=== PATIENT | female | born 1990 | race Caucasian/White ===

== ENCOUNTER → 2024-04-24 14:35 | Outpatient (BNVA) | payer MEDICARE, MEDICAID, SELFPAY | PROVIDERS: Visit Provider Physical Therapy Assistant ==

== ENCOUNTER → 2024-05-07 09:30 | Outpatient (BNVA) | payer OTHER, MEDICAID, SELFPAY | PROVIDERS: PCP Physician Assistant; Referring Provider Physician Assistant; Visit Provider Student in an Organized Health Care Education/Training Program | DX: K44.9 Diaphragmatic hernia without obstruction or gangrene (principal); E66.01 Morbid (severe) obesity due to excess calories; Z68.42 Body mass index [BMI] 45.0-49.9, adult | CPT/HCPCS: 99205 ==

== ENCOUNTER 2024-06-25 09:45 | Emergency (ER) | payer MEDICARE, MEDICAID, SELFPAY ==
[2024-06-25] VITALS (13 sets, daily range): BP systolic 118–158; BP diastolic 71–100; PULSE 100–119; RESP 11–23; TEMP 36.4; O2SAT 88–95
--- NOTE | 2024-06-25 10:13 | W.ED.GENAD ---
Discharge Plan Disposition Patient Disposition: Home Condition: Stable Discharge Details Clinical Impression: Vomiting, Abdominal pain, Electrolyte disturbance Primary Care Provider: Venessa Allen ED Provider: Faby Leavitt Home Meds and New Rx's Prescriptions: Continued Mirena 21 mcg/24hr (up to 8 yrs) 52 mg intrauterine device 1 device intrauterine ONCE Rx Instructions: as a single dose gabapentin 300 mg capsule 300 mg PO BID Advil PM 200-38 mg tablet 2 cap PO QHS gabapentin 600 mg tablet 600 mg PO DAILY ondansetron 4 mg tablet,disintegrating 4 mg PO Q12H PRN Nucynta 100 mg tablet 100 mg PO QID PRN Nucynta ER 50 mg tablet extended release 12 hr 50 mg PO Q12H topiramate [Topamax] 50 mg tablet 50 mg PO TID prochlorperazine maleate [Compazine] 10 mg tablet 10 mg PO Q6H PRN spironolactone 50 mg tablet 50 mg PO QHS albuterol 90 mcg/actuation aerosol 90 mcg inhalation Q4H PRN omeprazole 20 mg tablet,delayed release (DR/EC) 20 mg PO DAILY Cosentyx UnoReady Pen 300 mg/2 mL (150 mg/mL) pen injector 300 mg subcut Q2W Discharge Instructions Instructions: Hypokalemia, High Potassium Diet, Abdominal Pain, Adult ED, Nausea and Vomiting, Adult ED, Hypomagnesemia Additional Instructions: At this time CT abdomen chest pelvis is within normal limits. No evidence of blood clot in your lung. Your magnesium and potassium are slightly low. Please follow a high potassium diet. Follow up with primary care provider in 3-5 days. Return to ED sooner if any worsening or concerns. Please take the oral dissolvable tablets of Zofran as previously prescribed for any additional nausea vomiting. Please take Tylenol or Ibuprofen with food every 4-6 hours as needed for pain and swelling. Referrals: Venessa Allen [Primary Care Provider] - 3 days HPI General Mode of arrival: EMS. Date/Time Provider Initiated Documentation: 06/25/24 09:51. Limitations to Documentation: no limitations. Information obtained by: patient, EMS and RN notes reviewed. HPI Narrative: 33-year-old female presents to the ER via EMS with a chief complaint of vomiting, abdominal cramping for the last 24 hours. Patient reports that she was recently diagnosed and discharged from [facility] approximately 5 days ago for acute kidney injury and cyclical vomiting syndrome. She is complaining of some right upper quadrant abdominal pain. She reports she has been unable to hold down her nausea medications which include Zofran and Compazine at home. She does have a history of hidradenitis suppurativa which she reports that she was on chemotherapy for, she does have a surgical history of panniculectomy, cholecystectomy and appendectomy. She does have a history of cyclical vomiting syndrome PTSD and adjustment disorder. She does get the majority of her care at [facility]. Related Data Home Medications ?Medication ?Instructions ?Recorded ?Confirmed albuterol 90 mcg/actuation aerosol 90 mcg inhalation Q4H PRN 04/23/24 06/25/24 inhaler gabapentin 300 mg capsule 300 mg PO BID 04/23/24 06/25/24 gabapentin 600 mg tablet 600 mg PO DAILY 04/23/24 06/25/24 ibuprofen-diphenhydramine citrate 2 cap PO QHS 04/23/24 06/25/24 200 mg-38 mg tablet (Advil PM) levonorgestrel 21 mcg/24 hr (up to 1 device intrauterine ONCE 04/23/24 06/25/24 8 years) 52 mg intrauterine device (Mirena) omeprazole 20 mg tablet,delayed 20 mg PO DAILY 04/23/24 06/25/24 release ondansetron 4 mg disintegrating 4 mg PO Q12H PRN 04/23/24 06/25/24 tablet prochlorperazine maleate 10 mg 10 mg PO Q6H PRN 04/23/24 06/25/24 tablet (Compazine) spironolactone 50 mg tablet 50 mg PO QHS 04/23/24 06/25/24 tapentadol 100 mg tablet (Nucynta) 100 mg PO QID PRN 04/23/24 06/25/24 tapentadol 50 mg tablet,extended 50 mg PO Q12H 04/23/24 06/25/24 release,12 hr (Nucynta ER) topiramate 50 mg tablet (Topamax) 50 mg PO TID 04/23/24 06/25/24 secukinumab 300 mg/2 mL (150 300 mg subcut Q2W 04/24/24 06/25/24 mg/mL) subcutaneous pen injector (Cosentyx UnoReady Pen) Allergies Allergy/AdvReac Type Severity Reaction Status Date / Time acetaminophen AdvReac Intermediate Nausea Unverified 06/25/24 09:50 adhesive tape AdvReac Intermediate Skin Rash Unverified 06/25/24 09:50 amitriptyline AdvReac Intermediate Other (See Unverified 06/25/24 09:50 Comment) cigarette smoke AdvReac Other (See Unverified 06/25/24 09:50 Comment) General Stated Complaint: Nausea/Vomit/Diar JASON: 3 Review of Systems All systems reviewed & are unremarkable except as noted in HPI and below Gastrointestinal Gastrointestinal: Reports abdominal pain, Reports diarrhea, Reports nausea and Reports vomiting Exam Narrative Exam Narrative: Constitutional: Alert and oriented x3. Appears stated age. Overweight body habitus. Head: Normocephalic, no trauma. Eyes: Pupils PERRL, Red reflex noted, EOM's intact. Eyelids symmetrical without lesions, discharge, or swelling. ENT: Bilateral TM's WNL, External ear normal to inspection, no mastoid TTP, swelling, or erythema, Nasal turbinates WNL, no nasal discharge. Normal dentition, Posterior pharynx WNL, no exudate. Chest: RRR, Normal S1, S2, distal pulses intact. Resp: Lungs clear to auscultation bilaterally, no wheezes, rales, or rhonchi. Abdomen: Guarded, right upper quadrant pain with palpation no masses palpated, hypoactive bowel sounds all 4 quads. Musculoskeletal: Normal gait, Moves all 4 extremities without difficulty. Skin: No suspicious rashes or lesions. Capillary refill less than 2 sec. Neurologic: Cranial nerves II-XII intact. Alert and oriented x 3. Motor: No deficits noted. Sensory: Intact bilaterally all 4 extremities. Hematologic/Lymphatic: No ecchymosis, no lymphadenopathy. Course Vital Signs Vital signs: Vital Signs Temperature 36.4 C L 06/25/24 09:45 Pulse 116 H 06/25/24 09:45 Respiratory Rate 18 06/25/24 09:45 Blood Pressure 142/82 H 06/25/24 09:45 Pulse Oximetry 95 06/25/24 09:45 Temperature 36.4 C L 06/25/24 09:45 Temperature Source Oral 06/25/24 09:45 Pulse 116 H 06/25/24 09:45 Respiratory Rate 18 06/25/24 09:45 Blood Pressure 142/82 H 06/25/24 09:45 Blood Pressure Position Supine 06/25/24 09:45 Pulse Oximetry 95 06/25/24 09:45 Medical Decision Making 33-year-old female presents to the ER via EMS with a chief complaint of vomiting, abdominal cramping for the last 24 hours. Patient reports that she was recently diagnosed and discharged from [facility] approximately 5 days ago for acute kidney injury and cyclical vomiting syndrome. She is complaining of some right upper quadrant abdominal pain. She reports she has been unable to hold down her nausea medications which include Zofran and Compazine at home. She does have a history of hidradenitis suppurativa which she reports that she was on chemotherapy for, she does have a surgical history of panniculectomy, cholecystectomy and appendectomy. She does have a history of cyclical vomiting syndrome PTSD and adjustment disorder. She does get the majority of her care at [facility]. Workup ordered including CBC CMP lipase, magnesium, CT abdomen pelvis, 500 cc bolus Compazine and hydromorphone 0.5 mg Differential diagnosis includes not limited to recurrent cyclical vomiting syndrome, bowel obstruction, PE, pneumonia, viral illness, gastroenteritis. CBC shows mild leukocytosis white blood cell count 13.26, platelets 500 neutrophils 8.23 sodium 139 potassium 3.0 BUN 14 creatinine 1.2 GFR 60 magnesium is low at 1.4. Lipase within normal limits. Gram of magnesium IV ordered, 10 mill colons of potassium IV will trial 40 mill equivalents p.o. liquid. Awaiting CT. For my staff midwife/apprenticeship director the patient is still complaining of pain however her O2 sat is 90 to 91% on room air she is still tachycardic at 122, QTc is 489 blood pressure 153/97. Will hold off on medications at this time and instructed staff midwife/apprenticeship director to give the 500 cc bolus and magnesium and potassium. Called to patient's bedside, patient satting 88%, on room air. EKG ordered, portable chest x-ray, CT changed to CT chest PE rule out. Patient placed on nonrebreather at this time she is satting 89% on nonrebreather. She is tachycardic QTc is prolonged at 496. RT called by staff midwife/apprenticeship director, patient is on 1 L at this timeo2 sat improved. Chest x-ray within normal limits no obvious pneumonia pneumothorax or pleural effusion. Spoke with radiologist regarding CT no PE, nothing acute at this time. Discussed CT results and lab results with patient she appears much more comfortable upon reevaluation. She has no more complaints of shortness of breath her pain is under control at this time. I did discuss her potassium and magnesium being low she verbalized understanding. Discussed follow-up care. Discussed tricked return instructions. This text was generated using [employer] dictation system, please disregard any oddities of phrase or misspellings. Patient heart rate has somewhat improved down to 114 which is what she was upon arrival. Lab Data Lab results reviewed: Yes I reviewed the patient's lab results. Labs: Laboratory Tests Range/Units 06/25/24 10:32 WBC (4.4-10.8) 10^3/uL 13.26 H RBC (3.93-5.22) 10^6/uL 5.24 H Hgb (11.2-15.7) g/dL 14.3 Hct (36.0-46.0) % 42.9 MCV (80-95) fL 82 MCH (27.0-33.0) pg 27.3 MCHC (32.0-36.0) % 33.3 RDW (11.7-14.6) % 14.1 Plt Count (130-400) 10^3/uL 500 H MPV (8.0-11.0) fL 9.1 Immature Gran % % 0.5 Neutrophils % % 62.1 Lymphocytes % % 29.9 Monocytes % % 6.8 Eosinophils % % 0.2 Basophils % % 0.5 Nucleated RBC % (0.0-0.3) % 0.0 Absolute Neutrophils (1.2-6.7) 10^3/uL 8.23 H Absolute Lymphocytes (1.2-3.4) 10^3/uL 3.96 H Absolute Monocytes (0.1-0.8) 10^3/uL 0.90 H Absolute Eosinophils (0.0-0.7) 10^3/uL 0.03 Absolute Basophils (0.0-0.2) 10^3/uL 0.07 Sodium (136-145) mmol/L 139 Potassium (3.5-5.1) mmol/L 3.0 L Chloride (98-107) mmol/L 99 Carbon Dioxide (21.0-32.0) mmol/L 21.7 Anion Gap (3-11) mmol/L 18.3 H BUN (7-18) mg/dL 14 Creatinine (0.55-1.02) mg/dL 1.2 H Est GFR (CKD-EPI 2020) (mL/min/1.73m2) 60.54 Glucose (74-106) mg/dL 109 H Calcium (8.5-10.1) mg/dL 10.1 Magnesium (1.8-2.4) mg/dL 1.4 L Total Bilirubin (0.2-1.0) mg/dL 0.47 AST (15-37) U/L 24 ALT (14-59) U/L 51 Alkaline Phosphatase (46-116) U/L 131 H Total Protein (6.4-8.2) g/dL 8.5 H Albumin (3.4-5.0) g/dL 4.6 Lipase (<78) U/L 42 Serum HCG, Qual Negative Quality:SDOH Health Related Social Needs: No Data to Display PFSH All Active Problems (Updated 06/25/24 @ 13:38 by Faby Leavitt NP) Electrolyte disturbance (Acute) Abdominal pain (Acute) Vomiting (Acute) Hiatal hernia (Chronic) Medical History Morbid obesity with BMI of 50.0-59.9, adult Acchlmi-fm-yth Adjustment disorder with depressed mood Chronic, continuous use of opioids Abdominal pannus Irritant contact dermatitis Chronic post-traumatic stress disorder Skin ulcer of left thigh Dyspnea Candidiasis Intractable nausea and vomiting Sliding hiatal hernia Elevated blood pressure reading in office with diagnosis of hypertension Hidradenitis Surgical History S/P panniculectomy Social History Smoking/Tobacco Use Status: Never Smoking risk assessment performed?: Yes Alcohol Intake: current Alcohol Intake frequency: holidays/special occasions only Drug use: Daily Substance use type: marijuana Housing: apartment Do you feel safe at home: Yes Do you feel safe in your relationship?: Yes
[2024-06-25 10:42] LABS: Abs Immature Grans 0.06 10^3/uL (0.0-0.06); Absolute Basophil Count 0.07 10^3/uL (0.0-0.2); Basophils % 0.5 %; Eosinophils % 0.2 %; HCT 42.9 % (36.0-46.0); HGB 14.3 g/dL (11.2-15.7); Immature Grans % 0.5 %; Lymphocytes % 29.9 %; MCH 27.3 pg (27.0-33.0); MCHC 33.3 % (32.0-36.0); MCV 82 fL (80-95); MPV 9.1 fL (8.0-11.0); Monocytes % 6.8 %; Neutrophils % 62.1 %; Platelet Count 500 10^3/uL (130-400); RBC 5.24 10^6/uL (3.93-5.22); RDW 14.1 % (11.7-14.6); WBC 13.26 10^3/uL (4.4-10.8)
[2024-06-25] MEDS: HYDROmorphone 2 MG/ML SYR 0.5 MG IVP (10:42)
[2024-06-25] MEDS: Prochlorperazine 10 MG/2 ML VIAL IVP (10:43)
[2024-06-25] MEDS: diphenhydrAMINE 50 MG/ML VIAL 12.5 MG IVP (10:43)
[2024-06-25 10:44] LABS: Absolute Eosinophil Count 0.03 10^3/uL (0.0-0.7); Absolute Lymphocyte Count 3.96 10^3/uL (1.2-3.4); Absolute Neutrophil Count 8.23 10^3/uL (1.2-6.7)
[2024-06-25 10:57] LABS: ALT 51 U/L (14-59); AST 24 U/L (15-37); Albumin 4.6 g/dL (3.4-5.0); Alkaline Phosphatase 131 U/L (46-116); Anion Gap 18.3 mmol/L (3-11); BUN 14 mg/dL (7-18); Bilirubin, Total 0.47 mg/dL (0.2-1.0); CO2 21.7 mmol/L (21.0-32.0); CREATININE 1.2 mg/dL (0.55-1.02); Calcium 10.1 mg/dL (8.5-10.1); Chloride 99 mmol/L (98-107); Estimated GFR 60.54 (mL/min/1.73m2); Glucose 109 mg/dL (74-106); Magnesium 1.4 mg/dL (1.8-2.4); Sodium 139 mmol/L (136-145); Total Protein 8.5 g/dL (6.4-8.2)
[2024-06-25 10:58] LABS: Lipase 42 U/L (<78)
[2024-06-25 11:07] LABS: HCG Qual (Serum) Negative
[2024-06-25] MEDS: Normal Saline 500 ML IV (11:09)
[2024-06-25] MEDS: POTASSIUM CHLORIDE 10 MEQ/100 ML BAG 100 MEQ IV_INF (11:10)
[2024-06-25] MEDS: MAGNESIUM SULFATE 1 GM/100 ML BAG IV_INF (11:10)
[2024-06-25] MEDS: Potassium Chloride Liquid 20 MEQ PKT PO (11:14)
--- NOTE | 2024-06-25 11:15 | RT.EKG_ITS ---
APPROVED REPORT Exam: Resting ECG Reason for Exam: Tachycardia, Patient Location: E HR:114 bpm ECG Measurements Heart Rate 114 AXIS RI 148 P 58 QRSd 87 QRS 56 QT 359 T -50 QTc 496 Conclusion Sinus tachycardia...rate> 99 Probable LVH with secondary repol abnrm...multiple LVH criteria Inferior infarct, age indeterminate...Q>35mS, T neg, II III aVF Prolonged QT interval...QTc >495mS
--- NOTE | 2024-06-25 11:15 | DI.RAD_ITS ---
Exam(s) XR PORTABLE CHEST AP EXAM: XR PORTABLE CHEST AP CLINICAL HISTORY: Hypoxia, SOB. TECHNIQUE: 2D digital imaging was performed. COMPARISON: No exams were available for comparison FINDINGS: Single AP portable view. Heart size is upper normal. The mediastinum is not widened. Lungs are clear. No infiltrates nor obvious pleural effusions. IMPRESSION: No acute pulmonary findings on this single AP portable view of the chest. DATA REPOSITORY: RADIATION DOSE DELIVERED:
--- NOTE | 2024-06-25 11:27 | DI.CT_ITS ---
Exam(s) CT CHEST PE ABD PELVIS W EXAM: CT CHEST PE ABD PELVIS W CLINICAL HISTORY: Chest pain, SOB, Hypoxia, RUQ abd pain. TECHNIQUE: Imaging Protocol: Axial CT angiography was performed with multi-slice acquisition and m ulti-planar and/or 3D reconstructions. CONTRAST MATERIAL: Intravenous: Omnipaque 350 Contrast volume:100 ml Oral: None COMPARISON: No exams were available for comparison FINDINGS: CHEST: PULMONARY ARTERIES: There are no intra-arterial filling defects to suggest the presence of acute pulm onary emboli. LUNGS: There is no evidence of pulmonary infarction.No infiltrates. No ominous pulmonary nodules. T here are no pleural effusions. MEDIASTINUM: There is no hilar nor mediastinal adenopathy. Visualized thyroid unremarkable. CARDIAC: Heart size is normal. There is no pericardial effusion. There is no significant shift of t he interventricular septum.Caliber of the thoracic aorta is within normal limits. No evidence of aor tic dissection. OSSEOUS: No significant osseous lesions.Non appearing adjacent mild wedge compression fractures of T7 and T8 are noted.. ABDOMEN: There is no ascites. LIVER: There are no focal hepatic lesions nor dilatation of intrahepatic ducts. GALLBLADDER/BILIARY: The gallbladder surgically absent. CBD is not dilated. PANCREAS: No evidence of pancreatic mass nor dilatation of the pancreatic duct. SPLEEN: Spleen is not enlarged. There are no intrasplenic lesions. Splenic and portal veins are cha nt. ADRENALS: There are no significant adrenal masses. KIDNEYS:No cysts evident. No calculi nor hydronephrosis. No solid renal masses. ABDOMINAL AORTA: Abdominal aorta is not enlarged. LYMPH NODES: There is no retroperitoneal or para-aortic adenopathy. ABDOMINAL WALL/GI: Deep subcutaneous findings which indicate presence of an anterior abdominal wall h ernia mesh. No abnormal fluid collections evident in this region. No bowel obstruction. PELVIS: LYMPH NODES: There is no intrapelvic nor inguinal adenopathy. GI: No evidence of appendicitis.No evidence of sigmoid diverticulitis. URINARY BLADDER: No calculi nor masses evident REPRODUCTIVE: There is an IUD in the uterus. No abnormal adnexal masses. No free fluid. OSSEOUS: No significant osseous lesions. No fractures. IMPRESSION: 1. No evidence of acute pulmonary emboli nor pulmonary infarction. 2. There are no lung infiltrates, significant lung nodules, nor pleural effusions. 3. Gallbladder surgically absent. The biliary tree is not dilated. 4. Anterior abdominal wall hernia mesh. No abnormal fluid collection in this region nor elsewhere in the abdomen and pelvis. 5. There is an IUD in the endometrial canal of the uterus. Findings discussed by phone with ER provider 06/25/2024 at 12:35 p.m. RADIATION DOSE DELIVERED: 941.55mGy.cm Total DLP DATA REPOSITORY: All CT scans at this facility are submitted to the National Radiology Data Registry (NRDR) Dose Index Registry (DIR) with the [employer] (ACR). RADIATION OPTIMIZATION: All CT scans at this facility use at least one of these dose optimization te chniques: automated exposure control; mA and/or kV adjustment per patient size (includes targeted exa ms where dose is matched to clinical indication); or iterative reconstruction.
[2024-06-25] MEDS: Normal Saline - Diluent 50 ML VIAL IJ (11:41)
[2024-06-25] MEDS: Omnipaque 350 MG/ML 100 ML BTL IJ (11:42)
[2024-06-25] MEDS: fentaNYL 100 MCG/2 ML VIAL 25 MCG IVP (12:16)
== END 2024-06-25 13:57 | disposition home or self-care (01) ==
PROVIDERS: Emergency Provider Registered Nurse Emergency; PCP Physician Assistant
DX: R11.10 Vomiting, unspecified (principal); R10.11 Right upper quadrant pain; E87.8 Other disorders of electrolyte and fluid balance, not elsewhere classified; Z97.5 Presence of (intrauterine) contraceptive device; Z90.49 Acquired absence of other specified parts of digestive tract
CPT/HCPCS: 71275; 74177; 80053; 83690; 87426; 87637; 93005; 96365; 96366; 96375; 99285; 71045; 83735; 84703; 85025; 93010; J0780; J1171; J1200; J3010; J3475; J3480; J3490

== ENCOUNTER 2024-07-08 14:07 | Emergency (ER) | payer MEDICARE, MEDICAID, SELFPAY ==
[2024-07-08] VITALS (24 sets, daily range): BP systolic 142–216; BP diastolic 90–131; PULSE 83–124; RESP 11–44; TEMP 36.4–36.9; O2SAT 97–100
--- NOTE | 2024-07-08 14:05 | ED.GENADUL_ITS ---
Discharge Plan Disposition Patient Disposition: Against Medical Advice Condition: Stable Discharge Details Clinical Impression: Vomiting, Abdominal pain, Electrolyte disturbance Primary Care Provider: Venessa Allen ED Provider: Alexx Melton [place] Meds and New Rx's Prescriptions: No Action Mirena 21 mcg/24hr (up to 8 yrs) 52 mg intrauterine device 1 device intrauterine ONCE Rx Instructions: as a single dose gabapentin 300 mg capsule 300 mg PO BID Advil PM 200-38 mg tablet 2 cap PO QHS gabapentin 600 mg tablet 600 mg PO DAILY ondansetron 4 mg tablet,disintegrating 4 mg PO Q12H PRN Nucynta 100 mg tablet 100 mg PO QID PRN Nucynta ER 50 mg tablet extended release 12 hr 50 mg PO Q12H topiramate [Topamax] 50 mg tablet 50 mg PO TID prochlorperazine maleate [Compazine] 10 mg tablet 10 mg PO Q6H PRN spironolactone 50 mg tablet 50 mg PO QHS albuterol 90 mcg/actuation aerosol 90 mcg inhalation Q4H PRN omeprazole 20 mg tablet,delayed release (DR/EC) 20 mg PO DAILY Cosentyx UnoReady Pen 300 mg/2 mL (150 mg/mL) pen injector 300 mg subcut Q2W Discharge Instructions Additional Instructions: You were seen for recurrent abdominal pain and vomiting similar to previous episodes. You were found to have and continue to have electrolyte disturbances suggesting need for continued hydration and replenishment. You have decided to leave despite these continued abnormalities. You should continue hydrating at home with Pedialyte or Gatorade for the electrolytes present. You should follow-up with your primary care in the next day or 2. You may return to this ED or any other ED for recurrent and persistent vomiting or abdominal pain. Referrals: Venessa Allen [Primary Care Provider] - [facility] General Mode of arrival: EMS . Date/Time Provider Initiated Documentation: 07/08/24 14:21 . Limitations to Documentation: no limitations . Information obtained by: patient, RN notes reviewed and old records reviewed . HPI Narrative: Patient presents to ED by ambulance with onset of nausea, vomiting and diarrhea earlier this morning. She has generalized abdominal pain. She has reported history of cyclical vomiting syndrome and has had episodes similar to this multiple times in the past. She has been seen here at the end of June for similar. Her mother lives in the area and she was up here visiting. Most of her care is to [facility]. She denies any fever. She had nausea last night but did not start having pain and vomiting until this morning. She has no chest pain. She feels short of breath but relates this to her pain. No fever that she is aware of. Reports the diarrhea was soft stool not watery. Apparently recently discharged from [facility] with similar presentation. Related Data Home Medications ?Medication ?Instructions ?Recorded ?Confirmed albuterol 90 mcg/actuation aerosol 90 mcg inhalation Q4H PRN 04/23/24 06/25/24 inhaler gabapentin 300 mg capsule 300 mg PO BID 04/23/24 06/25/24 gabapentin 600 mg tablet 600 mg PO DAILY 04/23/24 06/25/24 ibuprofen-diphenhydramine citrate 2 cap PO QHS 04/23/24 06/25/24 200 mg-38 mg tablet (Advil PM) levonorgestrel 21 mcg/24 hr (up to 1 device intrauterine ONCE 04/23/24 06/25/24 8 years) 52 mg intrauterine device (Mirena) omeprazole 20 mg tablet,delayed 20 mg PO DAILY 04/23/24 06/25/24 release ondansetron 4 mg disintegrating 4 mg PO Q12H PRN 04/23/24 06/25/24 tablet prochlorperazine maleate 10 mg 10 mg PO Q6H PRN 04/23/24 06/25/24 tablet (Compazine) spironolactone 50 mg tablet 50 mg PO QHS 04/23/24 06/25/24 tapentadol 100 mg tablet (Nucynta) 100 mg PO QID PRN 04/23/24 06/25/24 tapentadol 50 mg tablet,extended 50 mg PO Q12H 04/23/24 06/25/24 release,12 hr (Nucynta ER) topiramate 50 mg tablet (Topamax) 50 mg PO TID 04/23/24 06/25/24 secukinumab 300 mg/2 mL (150 300 mg subcut Q2W 04/24/24 06/25/24 mg/mL) subcutaneous pen injector (Cosentyx UnoReady Pen) Allergies Allergy/AdvReac Type Severity Reaction Status Date / Time acetaminophen AdvReac Intermediate Nausea Unverified 07/08/24 17:59 adhesive tape AdvReac Intermediate Skin Rash Unverified 07/08/24 17:59 amitriptyline AdvReac Intermediate Other (See Unverified 07/08/24 17:59 Comment) cigarette smoke AdvReac Other (See Unverified 07/08/24 17:59 Comment) General JASON: 3 Review of Systems Narrative: Per HPI Exam Narrative Exam Narrative: Const: Obese female breathing quickly and moaning, complaining of abdominal pain. VS per triage. HEENT: NC/AT. Normal facial exam. Neck: Supple. Trachea midline. Lungs: Lungs are clear. Cor: Tachycardic, RRR without murmur. Good radial pulses. GI: Soft/ND/NT. Neuro: A+O x 3. Normal speech, mentation, gait. Cranial nerves II - XII grossly intact. No gross motor or sensory deficit. Ext: No C/C/E. Medical Decision Making Patient presenting to ED by ambulance with complaint of vomiting, abdominal pain, diarrhea. Patient with multiple episodes similar to this and most recently discharged from [facility]. She is not from the area but was visiting her mother. Reports history of cyclical vomiting but it is noted that she admits to daily marijuana use. Would likely benefit from droperidol but previous ED visit showed a prolonged QT. EKG ordered and continues to show prolonged QT with nonspecific ST changes. Patient's abdomen is actually benign on exam. CT imaging from her ED visit at the end of June showed an unremarkable chest/abdomen/pelvis. I am going to hold off on imaging at this point. IV with fluids ordered. Ketorolac, prochlorperazine, lorazepam ordered. Laboratory studies obtained. Nursing reports after ultrasound-guided IV placed patient stating that at [facility] she had been given ketamine for her pain. Subdissociative dose ordered in addition to above medications. 16:00 - Patient's labs are significant for elevated white count of 15, normal hemoglobin. Potassium little low at 3.4 and magnesium low at 1.5. Her bicarb is down to 10 with an anion gap of 20.6. Will need to repeat a BMP once all fluids, medications, electrolyte replacements have been completed. She has a normal total bilirubin and mild elevation in her AST and ALT. Lipase is normal. test negative. She is status post cholecystectomy in the past. Will still hold off on imaging at this point pending response to fluids and medications which are still being given. 18:00 - Patient requesting to leave, states she can feel miserable at home. No vomiting here since received medications and seems much more comfortable. Repeat BMP shows improvement in anion gap and bicarb but still significantly off. Discussed with patient, but still wants to leave. Has had the magnesium and one of the potassium infusions as well as about 1.5L of fluid. I did ask about her marijuana use. She is aware of cannabinoid hyperemesis syndrome. She has stopped using marijuana in the past for up to 2 to 3 weeks with continued symptoms and has had this discussion previously with physicians. Patient will be discharged home per her request with the understanding that she does have continued abnormalities suggesting continued fluid hydration required. She will do this at home as best she can and if has further problems would rather be at [facility] than here. Patient will be discharged home AMA. Medical Records Medical records reviewed: Yes I reviewed the patient's medical records. Medical records narrative: PCP note and surgery note from late last year Lab Data Lab results reviewed: Yes I reviewed the patient's lab results. Lab results narrative: see [facility] ECG Data Attestation: I personally reviewed and interpreted this ECG (s) as follows: Prior ECG tracings: available for review Interpretation: see MDM/EKG [facility] All Active Problems (Updated 07/08/24 @ 18:00 by Alexx Melton MD) Electrolyte disturbance (Acute) Abdominal pain (Acute) Vomiting (Acute) Hiatal hernia (Chronic) Medical History Cyclical vomiting Morbid obesity with BMI of 50.0-59.9, adult [id number] Adjustment disorder with depressed mood Chronic, continuous use of opioids Irritant contact dermatitis Chronic post-traumatic stress disorder Sliding hiatal hernia Hidradenitis Surgical History S/P cholecystectomy S/P appendectomy S/P panniculectomy Social History Smoking/Tobacco Use Status: Never Smoking risk assessment performed?: Yes Alcohol Intake: current Alcohol Intake frequency: holidays/special occasions only Drug use: Daily Substance use type: marijuana Housing: apartment Do you feel safe at home: Yes Do you feel safe in your relationship?: Yes
--- NOTE | 2024-07-08 14:15 | RT.EKG_ITS ---
APPROVED REPORT Exam: Resting ECG Reason for Exam: nausea/vomiting Patient Location: E HR:120 bpm ECG Measurements Heart Rate 120 AXIS ME 140 P 86 QRSd 83 QRS 77 QT 351 T 44 QTc 496 Conclusion Sinus tachycardia...rate> 99 Prolonged QT interval...QTc >495mS Normal [place] Nonspecific ST-T changes
[2024-07-08 15:00] LABS: Abs Immature Grans 0.07 10^3/uL (0.0-0.06); Absolute Basophil Count 0.09 10^3/uL (0.0-0.2); Absolute Lymphocyte Count 2.42 10^3/uL (1.2-3.4); Basophils % 0.6 %; Eosinophils % 0.1 %; HGB 15.1 g/dL (11.2-15.7); Immature Grans % 0.5 %; Lymphocytes % 16.1 %; MCH 28.1 pg (27.0-33.0); MCHC 34.3 % (32.0-36.0); MCV 82 fL (80-95); MPV 9.2 fL (8.0-11.0); Monocytes % 3.3 %; Neutrophils % 79.4 %; Platelet Count 480 10^3/uL (130-400); RBC 5.38 10^6/uL (3.93-5.22); RDW 14.4 % (11.7-14.6); RDW-SD 42.3 fL; WBC 15.01 10^3/uL (4.4-10.8)
[2024-07-08 15:01] LABS: Absolute Eosinophil Count 0.02 10^3/uL (0.0-0.7); Absolute Neutrophil Count 11.92 10^3/uL (1.2-6.7)
[2024-07-08 15:18] LABS: ALT 120 U/L (14-59); AST 56 U/L (15-37); Albumin 4.9 g/dL (3.4-5.0); Alkaline Phosphatase 174 U/L (46-116); Anion Gap 20.6 mmol/L (3-11); BUN 9 mg/dL (7-18); Bilirubin, Total 0.55 mg/dL (0.2-1.0); CO2 10.4 mmol/L (21.0-32.0); CREATININE 1.3 mg/dL (0.55-1.02); Calcium 11.1 mg/dL (8.5-10.1); Chloride 106 mmol/L (98-107); Glucose 135 mg/dL (74-106); Lipase 43 U/L (<78); Magnesium 1.5 mg/dL (1.8-2.4); Potassium 3.4 mmol/L (3.5-5.1); Sodium 137 mmol/L (136-145); Total Protein 9.1 g/dL (6.4-8.2)
[2024-07-08 15:29] LABS: HCG Qual (Serum) Negative
[2024-07-08] MEDS: Prochlorperazine 10 MG/2 ML VIAL IVP (15:29)
[2024-07-08] MEDS: Famotidine 20 MG/2 ML VIAL IVP (15:29)
[2024-07-08] MEDS: LORazepam 2 MG/ML VIAL 0.5 MG IVP (15:29)
[2024-07-08] MEDS: Ketorolac 15 MG/ML VIAL IVP (15:30)
[2024-07-08] MEDS: Normal Saline 1,000 ML 1000 ML IV (15:31)
[2024-07-08] MEDS: Ketamine 500 MG/10 ML VIAL 20 MG IVP (16:03)
[2024-07-08] MEDS: MAGNESIUM SULFATE 2 GM/50 ML BAG IV_INF (16:05)
[2024-07-08] MEDS: POTASSIUM CHLORIDE 10 MEQ/100 ML BAG 100 MEQ IV_INF (16:05)
[2024-07-08 17:43] LABS: Anion Gap 19.6 mmol/L (3-11); BUN 10 mg/dL (7-18); CO2 14.4 mmol/L (21.0-32.0); CREATININE 1.2 mg/dL (0.55-1.02); Calcium 9.9 mg/dL (8.5-10.1); Chloride 108 mmol/L (98-107); Estimated GFR 60.54 (mL/min/1.73m2); Glucose 127 mg/dL (74-106); Potassium 3.2 mmol/L (3.5-5.1); Sodium 142 mmol/L (136-145)
== END 2024-07-08 18:04 | disposition left against medical advice (07) ==
PROVIDERS: Emergency Provider Emergency Medicine; PCP Physician Assistant
DX: R11.2 Nausea with vomiting, unspecified (principal); R19.7 Diarrhea, unspecified; R10.9 Unspecified abdominal pain; E87.8 Other disorders of electrolyte and fluid balance, not elsewhere classified; Z53.29 Procedure and treatment not carried out because of patient's decision for other reasons
CPT/HCPCS: 36415; 80048; 80053; 83690; 93005; 96361; 96365; 96368; 96375; 99284; 83735; 84703; 85025; 93010; J0780; J1885; J2060; J3475; J3480

== ENCOUNTER 2024-09-27 17:06 | Observation (INO) | payer MEDICARE, MEDICAID, SELFPAY ==
[2024-09-27] VITALS (18 sets, daily range): BP systolic 99–174; BP diastolic 29–151; PULSE 94–143; RESP 16–37; TEMP 36.7–37.4; O2SAT 92–97
--- NOTE | 2024-09-27 17:26 | DI.RAD_ITS ---
Exam(s) XR PORTABLE CHEST AP EXAM: XR PORTABLE CHEST AP CLINICAL HISTORY: left rib pain, eval for pneumothorax TECHNIQUE: 2D digital imaging was performed of the chest. One image was obtained. An AP view was ob tained. COMPARISON: CR XR PORTABLE CHEST AP from 06/25/2024 FINDINGS: MEDIASTINUM: Normal. HEART: Normal. PULMONARY VASCULATURE: Normal. LUNGS: Clear. PLEURAL SPACE: No pleural effusion or pneumothorax. BONE:Within normal limits for the patient's age. No displaced rib fractures seen on this x-ray. OTHER FINDINGS:Normal. IMPRESSION: No acute pulmonary findings. DATA REPOSITORY: RADIATION DOSE DELIVERED:
--- NOTE | 2024-09-27 17:26 | DI.CT_ITS ---
Exam(s) CT ABDOMEN PELVIS W EXAM: CT ABDOMEN PELVIS W CLINICAL HISTORY: Right sided abdominal pain, history of cyst, TECHNIQUE: Imaging Protocol: Axial computed tomography images with coronal and sagittal reformatted images were created and reviewed. CONTRAST MATERIAL: Intravenous: Omnipaque 350 Contrast volume:100 mL Oral: No COMPARISON: CT CT CHEST PE ABD PELVIS W from 06/25/2024 FINDINGS: The examination is limited due to patient motion artifact. ABDOMEN: Lung Bases: There is a small hiatal hernia. Liver: Normal density. No measurable mass. Portal, Superior Mesenteric, and Splenic Veins: Unremarkable. Gallbladder and Biliary Tract: Status post cholecystectomy. No significant biliary ductal dilatation is present. Pancreas: Normal density, no abnormal calcifications or inflammatory process. Spleen: Normal. Adrenals: No masses seen. Kidneys: Normal size, contour and axis. No radiodense stones or obstructive uropathy. No masses seen. Abdominal Aorta: Abdominal portion non-dilated. Bowel: No obstruction or bowel wall thickening. There is no evidence of an acute appendicitis. Peritoneal Cavity: No ascites, collection or mesenteric inflammatory response. No free air. Lymph Nodes: Within normal limits. Bones: Within normal limits for the patient's age. Soft Tissues: Unremarkable. PELVIS: Bladder: Symmetric distention, no gross wall thickening. Reproductive Organs: There is an IUD in position in the uterus. There are bilateral ovarian cysts. The largest on the right ovary measures 1.5 cm. The largest on the left ovary measures 1.3 cm. Lymph Nodes: Within normal limits. Bones: Within normal limits for the patient's age. IMPRESSION: 1. No acute abdominal or pelvic process. 2. Bilateral ovarian follicular cysts. The largest on the right measures 1.5 cm. The largest on the left measures 1.3 cm. RADIATION DOSE DELIVERED: 1,066.92mGy.cm Total DLP DATA REPOSITORY: All CT scans at this facility are submitted to the National Radiology Data Registry (NRDR) Dose Index Registry (DIR) with the [employer] ([employer]). RADIATION OPTIMIZATION: All CT scans at this facility use at least one of these dose optimization te chniques: automated exposure control; mA and/or kV adjustment per patient size (includes targeted exa ms where dose is matched to clinical indication); or iterative reconstruction.
[2024-09-27] MEDS: Pantoprazole 40 MG VIAL IVP (17:41)
[2024-09-27] MEDS: MORPHine 4 MG/ML SYR IVP (17:41)
[2024-09-27] MEDS: Ondansetron 4 MG/2 ML VIAL IVP (17:41)
[2024-09-27 17:45] LABS: Abs Immature Grans 0.11 10^3/uL (0.0-0.06); Absolute Eosinophil Count 0.02 10^3/uL (0.0-0.7); Absolute Monocyte Count 0.67 10^3/uL (0.1-0.8); Absolute Neutrophil Count 14.82 10^3/uL (1.2-6.7); Basophils % 0.4 %; Eosinophils % 0.1 %; HCT 46.6 % (36.0-46.0); Immature Grans % 0.6 %; Lymphocytes % 15.5 %; MCH 27.7 pg (27.0-33.0); MCHC 34.3 % (32.0-36.0); MCV 81 fL (80-95); MPV 9.2 fL (8.0-11.0); Monocytes % 3.6 %; Neutrophils % 79.8 %; Platelet Count 524 10^3/uL (130-400); RBC 5.78 10^6/uL (3.93-5.22); RDW 13.4 % (11.7-14.6); RDW-SD 39.1 fL; WBC 18.57 10^3/uL (4.4-10.8)
[2024-09-27 17:48] LABS: Absolute Basophil Count 0.07 10^3/uL (0.0-0.2); Absolute Lymphocyte Count 2.88 10^3/uL (1.2-3.4)
[2024-09-27] MEDS: Lactated Ringers 1,000 ML 1000 ML IV (17:50)
--- NOTE | 2024-09-27 17:55 | ED.GENADUL_ITS ---
Discharge Plan Disposition Patient Disposition: Admit to [facility] Discharge Details Chief Complaint: Nk/Back Pain Clinical Impression: Acute hypokalemia, Abdominal pain, Dehydration with hyponatremia, Hypercalcemia, Hypomagnesemia, Acute kidney injury Admit Date/Time: 09/27/24 20:59 Admit Provider: Kervin Viramontes Attending Provider: Kervin Viramontes Primary Care Provider: Venessa Allen ED Provider: Cristian Bass HPI General Date/Time Provider Initiated Documentation: 09/27/24 17:15 . HPI Narrative: This is a 34-year-old female with a past medical history of cyclic vomiting syndrome, diagnosed morbid obesity, hidradenitis suppurativa, PTSD, chronic and continuous use of opiates, cholecystectomy, appendectomy, panniculectomy, who presents today for evaluation of abdominal pain. Patient states that she has a history of ovarian cysts, and today at 4 AM she developed sudden severe stabbing unremitting right lower quadrant abdominal pain, it has been persistent throughout the day without any improvement. She has had multiple episodes of vomiting without carla hematemesis. No diarrhea. When she called the ambulance this evening she got in and then developed some mild left lower rib pain. She denies any trauma or fall to that area. She states that she does have a history of pneumothorax and states that it feels somewhat similar. She denies any other complaints at this time. She denies fever or chills. No current vaginal bleeding. She does have an intrauterine device currently present. Additionally she states that she was at [facility] about a week or so ago and was diagnosed with a ruptured ovarian cyst at that time. Patient did receive 100 mcg of fentanyl and route via EMS. Related Data Home Medications ?Medication ?Instructions ?Recorded ?Confirmed albuterol 90 mcg/actuation aerosol 90 mcg inhalation Q4H PRN 04/23/24 09/27/24 inhaler gabapentin 300 mg capsule 300 mg PO BID 04/23/24 09/27/24 gabapentin 600 mg tablet 600 mg PO DAILY 04/23/24 09/27/24 ibuprofen-diphenhydramine citrate 2 cap PO QHS 04/23/24 09/27/24 200 mg-38 mg tablet (Advil PM) levonorgestrel 21 mcg/24 hr (up to 1 device intrauterine ONCE 04/23/24 09/27/24 8 years) 52 mg intrauterine device (Mirena) omeprazole 20 mg tablet,delayed 20 mg PO DAILY 04/23/24 09/27/24 release ondansetron 4 mg disintegrating 4 mg PO Q12H PRN 04/23/24 09/27/24 tablet prochlorperazine maleate 10 mg 10 mg PO Q6H PRN 04/23/24 09/27/24 tablet (Compazine) spironolactone 50 mg tablet 50 mg PO QHS 04/23/24 09/27/24 tapentadol 100 mg tablet (Nucynta) 100 mg PO QID PRN 04/23/24 09/27/24 tapentadol 50 mg tablet,extended 100 mg PO Q12H 04/23/24 09/27/24 release,12 hr (Nucynta ER) topiramate 50 mg tablet (Topamax) 50 mg PO TID 04/23/24 09/27/24 secukinumab 300 mg/2 mL 300 mg subcut Q2W 04/24/24 09/27/24 subcutaneous pen injector (Cosentyx UnoReady Pen) Allergies Allergy/AdvReac Type Severity Reaction Status Date / Time acetaminophen AdvReac Intermediate Nausea Verified 09/27/24 17:32 adhesive tape AdvReac Intermediate Skin Rash Verified 09/27/24 17:32 cigarette smoke AdvReac Other (See Verified 09/27/24 17:32 Comment) General Stated Complaint: Nk/Back Pain JASON: 3 Exam Narrative Exam Narrative: 1.Const: Well-nourished, Well-developed, appearing stated age 2.Eyes: PERRL, no conjunctival injection, and symmetrical lids. 3.ENT: Atraumatic external nose and ears. Notably dry MM. Neck: Symmetric, trachea midline, No thyromegaly. 4.CVS: +S1/S2, Peripheral pulses 2+ and equal in all extremities. Brisk capillary refill in all extremities. 5.RESP: Unlabored respiratory effort. Clear to auscultation bilaterally. No wheezes rales or rhonchi 6.GI: Soft, nondistended, generalized tenderness throughout without focality. Exam challenging secondary to patient's current pain status. 7.MSK: Normocephalic/Atraumatic, Extremities w/o deformity or ttp No cyanosis or clubbing, Normal movement of all extremities 8.Skin: Warm, Dry. No rashes or lesions. 9.Neuro: motors and controls tester II-XII grossly intact. Sensation grossly intact, no focal neurologic deficits. 10.Psych: (AAO) x3. Patient is actively screaming and moaning notably loudly Course Vital Signs Vital signs: Vital Signs Temperature 37.4 C 09/27/24 17:09 Pulse 141 H 09/27/24 17:09 Respiratory Rate 34 H 09/27/24 17:09 Blood Pressure 143/125 H 09/27/24 17:09 Pulse Oximetry 96 09/27/24 17:09 Temperature 37.4 C 09/27/24 17:09 Temperature Source Temporal Artery Scan 09/27/24 17:09 Pulse 141 H 09/27/24 17:09 Respiratory Rate 34 H 09/27/24 17:09 Blood Pressure 143/125 H 09/27/24 17:09 Pulse Oximetry 96 09/27/24 17:09 Oxygen Delivery Method Room Air 09/27/24 17:09 Oxygen Flow Rate 0 09/27/24 17:09 Pain Level 10 09/27/24 17:29 Lab/Test Results Lab/Test Results: Laboratory Tests Range/Units 09/27/24 17:34 WBC (4.4-10.8) 10^3/uL 18.57 H RBC (3.93-5.22) 10^6/uL 5.78 H Hgb (11.2-15.7) g/dL 16.0 H Hct (36.0-46.0) % 46.6 H MCV (80-95) fL 81 MCH (27.0-33.0) pg 27.7 MCHC (32.0-36.0) % 34.3 RDW (11.7-14.6) % 13.4 Plt Count (130-400) 10^3/uL 524 H MPV (8.0-11.0) fL 9.2 Immature Gran % % 0.6 Neutrophils % % 79.8 Lymphocytes % % 15.5 Monocytes % % 3.6 Eosinophils % % 0.1 Basophils % % 0.4 Nucleated RBC % (0.0-0.3) % 0.0 Absolute Neutrophils (1.2-6.7) 10^3/uL 14.82 H Absolute Lymphocytes (1.2-3.4) 10^3/uL 2.88 Absolute Monocytes (0.1-0.8) 10^3/uL 0.67 Absolute Eosinophils (0.0-0.7) 10^3/uL 0.02 Absolute Basophils (0.0-0.2) 10^3/uL 0.07 Medical Decision Making This is a 34-year-old female with a past medical history of cyclic vomiting syndrome, diagnosed morbid obesity, hidradenitis suppurativa, PTSD, chronic and continuous use of opiates, cholecystectomy, appendectomy, panniculectomy, who presents today for evaluation of abdominal pain. Patient states that she has a history of ovarian cysts, and today at 4 AM she developed sudden severe stabbing unremitting right lower quadrant abdominal pain, it has been persistent throughout the day without any improvement. She has had multiple episodes of vomiting without carla hematemesis. No diarrhea. When she called the ambulance this evening she got in and then developed some mild left lower rib pain. She denies any trauma or fall to that area. She states that she does have a history of pneumothorax and states that it feels somewhat similar. She denies any other complaints at this time. She denies fever or chills. No current vaginal bleeding. She does have an intrauterine device currently present. Additionally she states that she was at [facility] about a week or so ago and was diagnosed with a ruptured ovarian cyst at that time. Patient did receive 100 mcg of fentanyl and route via EMS. Exam demonstrates a screaming and moaning patient had a notably extreme volume, main source of pain is the right lower abdomen. Abdomen is generally tender t hroughout, with no focal component. However no guarding or rebound though. Exam is slightly atypical. Differential includes ruptured ovarian cyst, ovarian torsion, rib fracture, less likely pneumothorax. Will evaluate for concerning etiologies, monitor closely and reassess. Will treat the patient's pain and rehydrate and give antiemetics. 930 Laboratory workup has returned, patient has a white count of 18, hemoglobin of 16 and platelet of 524, suggestive of hemoconcentration. Electrolytes are all slightly atypical with a sodium of 135, potassium of 3.3, and anion gap of 23, BUN of 19 creatinine of 1.9 and a GFR 34 which is notably diminished compared to normal. Additionally the calcium is notably high at 13.4. We will send an ionized calcium. Magnesium is low at 1. I feel this represents a combination of dehydration, vomiting, and acute kidney injury. Electrolytes will be replaced, will give 20 IV mEq of potassium, she received a liter of lactated Ringer's but we will add a liter of normal saline. We will give 2 g of magnesium. With her calcium level it does not yet require IV bisphosphonates per guidelines, and will continue to aggressively rehydrate. We gave the p atient antiemetics, but despite this she still had episodes of vomiting. I do not feel that she would be a good candidate for home therapy with her electrolyte abnormalities acute kidney injury, and inability to tolerate p.o. Additionally CT scan returned with no evidence of acute process aside for evidence of ovarian cyst. Patient's pain was notable, but resolved with IV opiates. I had a long discussion with her that I was concerned that she has a component of both tolerance and dependence. She understands and reciprocates this saying that she has been talking about this with her family doctor, and is looking to make a change. Because of this I will give her a clonidine patch at this time, we will continue to treat with fluids and antiemetics. I contacted the hospitalist Dr. Boogie and he agrees with the assessment and plan. I have extensively reviewed the treatment plan with the patient. I have addressed all patient concerns at this time. I have also discussed the plan with the admitting physician and they agree with the current assessment and plan and have agreed to assume responsibility for the patient. All parties demonstrate verbal understanding and agreement with our assessment and plan at this time. The documentation in this chart was dictated using [employer] dictation software. Please excuse any dictation errors. FINDINGS: The examination is limited due to patient motion artifact. ABDOMEN: Lung Bases: There is a small hiatal hernia. Liver: Normal density. No measurable mass. Portal, Superior Mesenteric, and Splenic Veins: Unremarkable. Gallbladder and Biliary Tract: Status post cholecystectomy. No significant biliary ductal dilatation is present. Pancreas: Normal density, no abnormal calcifications or inflammatory process. Spleen: Normal. Adrenals: No masses seen. Kidneys: Normal size, contour and axis. No radiodense stones or obstructive uropathy. No masses seen. Abdominal Aorta: Abdominal portion non-dilated. Bowel: No obstruction or bowel wall thickening. There is no evidence of an acute appendicitis. Peritoneal Cavity: No ascites, collection or mesenteric inflammatory response. No free air. Lymph Nodes: Within normal limits. Bones: Within normal limits for the patient's age. Soft Tissues: Unremarkable. PELVIS: Bladder: Symmetric distention, no gross wall thickening. Reproductive Organs: There is an IUD in position in the uterus. There are bilateral ovarian cysts. The largest on the right ovary measures 1.5 cm. The largest on the left ovary measures 1.3 cm. Lymph Nodes: Within normal limits. Bones: Within normal limits for the patient's age. IMPRESSION: 1. No acute abdominal or pelvic process. 2. Bilateral ovarian follicular cysts. The largest on the right measures 1.5 cm. The largest on the left measures 1.3 cm. Quality:SDOH Health Related Social Needs: Health related social needs inadequate housing (Z59.1) , food insecurity (Z59.41), transportation insecurity (Z59.82), problems related to housing/economic circumstances (Z59.89), feeling lonely/isolated (Z60.8) Health related social needs details pt feels she has e verything she needs at this time Critical Care Time Critical Care Time Critical Care Time: Yes Total Critical Care Time: 45 Attestation: Upon my evaluation, this patient had a high probability of imminent or life- threatening deterioration, which required my direct attention, intervention, and personal management. I have personally provided 45 minutes of critical care time exclusive of time spent on separately billable procedures. Time includes review of laboratory data, radiology results, discussion with consultants, and monitoring for potential decompensation. Interventions were performed as documented. PFSH All Active Problems (Updated 09/27/24 @ 23:19 by Cristian Bass DO) Acute kidney injury (Acute) Acute hypokalemia (Acute) DVT prophylaxis (Acute) Hypomagnesemia (Acute) Hypercalcemia (Acute) Dehydration with hyponatremia (Acute) Abdominal pain (Acute) Hiatal hernia (Chronic) Medical History Cyclical vomiting Morbid obesity with BMI of 50.0-59.9, adult [id number] Adjustment disorder with depressed mood Chronic, continuous use of opioids Irritant contact dermatitis Chronic post-traumatic stress disorder Sliding hiatal hernia Hidradenitis Surgical History S/P cholecystectomy S/P appendectomy S/P panniculectomy Social History Smoking/Tobacco Use Status: Never Smoking risk assessment performed?: Yes Alcohol Intake: current Alcohol Intake frequency: holidays/special occasions only Drug use: Daily Substance use type: marijuana Housing: apartment Do you feel safe at home: Yes Do you feel safe in your relationship?: Yes
[2024-09-27] MEDS: Normal Saline - Diluent 50 ML VIAL IJ (17:59)
[2024-09-27] MEDS: Omnipaque 350 MG/ML 100 ML BTL IJ (18:00)
[2024-09-27 18:02] LABS: ALT 42 U/L (14-59); AST 19 U/L (15-37); Albumin 4.9 g/dL (3.4-5.0); Alkaline Phosphatase 134 U/L (46-116); Anion Gap 23.4 mmol/L (3-11); BUN 19 mg/dL (7-18); Bilirubin, Total 0.6 mg/dL (0.2-1.0); CO2 13.6 mmol/L (21.0-32.0); CREATININE 1.9 mg/dL (0.55-1.02); Chloride 98 mmol/L (98-107); Estimated GFR 34.66 (mL/min/1.73m2); Glucose 133 mg/dL (74-106); Potassium 3.3 mmol/L (3.5-5.1); Sodium 135 mmol/L (136-145); Total Protein 9.1 g/dL (6.4-8.2)
[2024-09-27 18:13] LABS: Calcium 13.4 mg/dL (8.5-10.1)
[2024-09-27] MEDS: HYDROmorphone 2 MG/ML SYR 1 MG IVP ×2 (18:34→20:44)
[2024-09-27] MEDS: POTASSIUM CHLORIDE 20 MEQ/100 ML BAG 50 MEQ IV_INF (19:51)
[2024-09-27] MEDS: Normal Saline 1,000 ML 1000 ML IV (19:51)
[2024-09-27] MEDS: MAGNESIUM SULFATE 2 GM/50 ML BAG IV_INF ×2 (19:56→21:54)
[2024-09-27] MEDS: Metoclopramide 10 MG/2 ML VIAL IVP (20:44)
[2024-09-27] MEDS: cloNIDine 0.1 MG PATCH TD (21:08)
--- NOTE | 2024-09-27 21:11 | W.PM.HP.N ---
Date of service: 10/08/24 Time of Service: 10:30 Assessment and Plan Assessment and plan (1) Abdominal pain: Status: Acute Assessment and plan: Inclear cause, complicated by chronic abdominal pain treated with opioids and gabapentin and trauma history. s/p mulitple abdominal surgeries including appendectomy and cholecystectomy, could have started with GI pain from adhesions No obstruction or other focal pathology Cysts seen on CT do not appear to be pathologic and are unlikely to be the cause of pain. She did run out of her PPI and having reflux, PUD in ddx Hypercalcemia can also cause abdominal pain Observe, treat pain, hydrate, continue to reassess in AM (2) Chronic, continuous use of opioids: Assessment and plan: Complex pain unfortately resulting in chronic opioid use at a young age and agressive behavior seeking pain control. Will continue outpatient therapy and prn hydromorphone, but chcf she may benefit from transition to a sublingual medication such buprenorphine as with vomiting her pain escalates because of opioid withdrawal. She doesn't tolerate skin patches. 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 (3) Dehydration with hyponatremia: Status: Acute Assessment and plan: With MICHELET, hemoconcentration. s/p 2 liters in the ED. (4) Hypercalcemia: Status: Acute Assessment and plan: severe, a/w dehydration, but this also could be contributing to her abdominal pain IV hydration is first step. She had hypercalcemia to 11.1 once before, suggesting there may be a chronic issue. Ionized sent to confirm. 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 with MICHELET must consider multiple myeloma though very unlikely at this age, would send SPEP/UPEP/light chains along with PTH/Vit D if hypercalcemia doesn't resolve with hydration and stopping calcium supplementation. (5) Hypomagnesemia: Status: Acute Assessment and plan: worsening hypercalcemia and hypokalemia. Replace with 4g and follow as she may need more (6) Morbid obesity with BMI of 50.0-59.9, adult: Assessment and plan: She has been loosing weight and BMI down in 40s. We did discuss GLP-1 as option as her goal is another 40lb weight loss to get hiatal hernia surgery. (7) DVT prophylaxis: Status: Acute Assessment and plan: enoxaparin History of Present Illness History of Present Illness Chief Complaint: abdominal pain, vomiting Narrative: 34 yo F with complex history of abdominal pain on chronic opioids, BMI 40s, GERD a/w hiatal hernia, severe hidradinitis suppurativa on secukinumab who presented with acute onset of worsening of her chronic abdominal pain and vomiting that started at 4am. She was staying with her mother in [place] and she woke with the pain. Sharp, stabbing, right mid abdomen radiating to her right flank. She was immediately vomiting, she isn't sure what started first. Her pain and vomiting continued during the day. About 2p she had a similar sharp pain on the left mid to upper abdomen also radiating to the flank, roughly symmetric. She has not been able to eat today or keep down her pain medication, which she thinks made this worse. She finally came into the ED with severe pain. She got 100mcg fentanyl, didn't help as much as two 1mg doses of IV hydromorphone. Also got 2 liters of fluid and IV pantoprazole and metoclopramide. She is more comfortable now. She also mentions she ran out of her omeprazole about 3 days ago. She has been getting severe heartburn and drank a gallon of milk and many Tums during that time. She also took the Cosentyx (secukinumab) a couple days ago and this has made her nausea worse in the past. No diarrhea, her last BM was 2 days ago, which is not uncommon for her. She has felt low grade fever and chills today. No dysuria, hematuria, or frequency, but some hesitancy today. She doesn't get regular periods, no vaginal discharge. Review of Systems All systems reviewed & are unremarkable except as noted in HPI and below PFSH All Active Problems (Updated 09/27/24 @ 23:19 by Cristian Bass DO) Acute kidney injury (Acute) Acute hypokalemia (Acute) DVT prophylaxis (Acute) Hypomagnesemia (Acute) Hypercalcemia (Acute) Dehydration with hyponatremia (Acute) Abdominal pain (Acute) Hiatal hernia (Chronic) Medical History Cyclical vomiting Morbid obesity with BMI of 50.0-59.9, adult [id number] Adjustment disorder with depressed mood Chronic, continuous use of opioids Irritant contact dermatitis Chronic post-traumatic stress disorder Sliding hiatal hernia Hidradenitis Surgical History S/P cholecystectomy S/P appendectomy S/P panniculectomy Social History (Updated 09/27/24 @ 23:52 by Kervin Viramontes) Smoking/Tobacco Use Status: Never Smoking risk assessment performed?: Yes Alcohol Intake: current Alcohol Intake frequency: holidays/special occasions only Drug use: Daily Substance use type: marijuana Housing: apartment Do you feel safe at home: Yes Do you feel safe in your relationship?: Yes Additional Social history: On SSDI, has had severe medical issues since teen. 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 Mom on [place], visit a lot Meds Allergies and Home Medications Allergies Allergy/AdvReac Type Severity Reaction Status Date / Time acetaminophen AdvReac Intermediate Nausea Verified 09/27/24 17:32 adhesive tape AdvReac Intermediate Skin Rash Verified 09/27/24 17:32 cigarette smoke AdvReac Other (See Verified 09/27/24 17:32 Comment) Home Medications ?Medication ?Instructions ?Recorded ?Confirmed ?Type albuterol 90 mcg/actuation aerosol 90 mcg inhalation Q4H PRN 04/23/24 09/27/24 History inhaler gabapentin 300 mg capsule 300 mg PO BID 04/23/24 09/27/24 History gabapentin 600 mg tablet 600 mg PO DAILY 04/23/24 09/27/24 History ibuprofen-diphenhydramine citrate 2 cap PO QHS 04/23/24 09/27/24 History 200 mg-38 mg tablet (Advil PM) levonorgestrel 21 mcg/24 hr (up to 1 device intrauterine ONCE 04/23/24 09/27/24 History 8 years) 52 mg intrauterine device (Mirena) omeprazole 20 mg tablet,delayed 20 mg PO DAILY 04/23/24 09/27/24 History release ondansetron 4 mg disintegrating 4 mg PO Q12H PRN 04/23/24 09/27/24 History tablet prochlorperazine maleate 10 mg 10 mg PO Q6H PRN 04/23/24 09/27/24 History tablet (Compazine) spironolactone 50 mg tablet 50 mg PO QHS 04/23/24 09/27/24 History tapentadol 100 mg tablet (Nucynta) 100 mg PO QID PRN 04/23/24 09/27/24 History tapentadol 50 mg tablet,extended 100 mg PO Q12H 04/23/24 09/27/24 History release,12 hr (Nucynta ER) topiramate 50 mg tablet (Topamax) 50 mg PO TID 04/23/24 09/27/24 History secukinumab 300 mg/2 mL 300 mg subcut Q2W 04/24/24 09/27/24 History subcutaneous pen injector (Cosentyx UnoReady Pen) Results Imaging Chest x-ray: report reviewed (No acute pulmonary findings. ) Abdomen CT scan report/results: report reviewed (see below) CT scan - pelvis: report reviewed (1. No acute abdominal or pelvic process. 2. Bilateral ovarian follicular cysts. The largest on the right measures 1.5 cm. The largest on the left measures 1.3 cm.) Labs 09/27/24 17:34 09/27/24 17:34 Labs: Laboratory Results - last 24 hr 09/27/24 17:34 WBC 18.57 H RBC 5.78 H Hgb 16.0 H Hct 46.6 H MCV 81 MCH 27.7 MCHC 34.3 RDW 13.4 Plt Count 524 H MPV 9.2 Immature Gran % 0.6 Neutrophils % 79.8 Lymphocytes % 15.5 Monocytes % 3.6 Eosinophils % 0.1 Basophils % 0.4 Nucleated RBC % 0.0 Absolute Neutrophils 14.82 H Absolute Lymphocytes 2.88 Absolute Monocytes 0.67 Absolute Eosinophils 0.02 Absolute Basophils 0.07 Sodium 135 L Potassium 3.3 L Chloride 98 Carbon Dioxide 13.6 L Anion Gap 23.4 H BUN 19 H Creatinine 1.9 H Est GFR (CKD-EPI 2020) 34.66 Glucose 133 H Calcium 13.4 H* Magnesium 1.0 L Total Bilirubin 0.6 AST 19 ALT 42 Alkaline Phosphatase 134 H Total Protein 9.1 H Albumin 4.9 Last Vital Signs Temp 37.4 C 09/27/24 17:09 Pulse 122 H 09/27/24 20:31 Resp 16 09/27/24 20:31 BP 139/117 H 09/27/24 20:31 Pulse Ox 95 09/27/24 20:31 Time Spent Time spent with Patient: >75 minutes Time was spent: preparing to see the patient(eg.review tests), obtaining and/or reviewing separately otained hiistory, ordering medications,tests, procedures, referring, communicating with other health health care aide, indepentently interpreting results, counseling the patient and care coordination
--- NOTE | 2024-09-27 21:56 | W.PC.ACHO ---
Registration Status: Primary Language: Preferred Language: ED Information & Data Chief Complaint Nk/Back Pain 09/27/24 18:00 Triage Note patient woke with RLQ pain, 09/27/24 17:09 [employer] pain started in left sided back pain. 100 mcg of fentanyl given IM on route that patient states has not helped. Medical / Surgical History (Last Reviewed 07/08/24 @ 15:00 by Alexx Melton MD) Cyclical vomiting Morbid obesity with BMI of 50.0-59.9, adult [id number] Adjustment disorder with depressed mood Chronic, continuous use of opioids Irritant contact dermatitis Chronic post-traumatic stress disorder Sliding hiatal hernia Hidradenitis (Last Reviewed 07/08/24 @ 14:30 by Alexx Melton MD) S/P cholecystectomy S/P appendectomy S/P panniculectomy Most Recent Vital Signs Temperature 37.4 C 09/27/24 17:09 Temperature Source Temporal Artery Scan 09/27/24 17:09 Pulse 133 H 09/27/24 21:31 Pulse 129 H 09/27/24 21:31 Respiratory Rate 20 09/27/24 21:31 Blood Pressure 112/77 09/27/24 21:31 Blood Pressure Mean 82 09/27/24 21:31 Pulse Oximetry 95 09/27/24 21:31 Oxygen Delivery Method Room Air 09/27/24 17:09 Oxygen Flow Rate 0 09/27/24 17:09 Pain Level 10 09/27/24 17:29 Allergies acetaminophen Adverse Reaction (Intermediate, Verified 09/27/24 17:32) Nausea adhesive tape Adverse Reaction (Intermediate, Verified 09/27/24 17:32) Skin Rash cigarette smoke Adverse Reaction (Verified 09/27/24 17:32) Other (See Comment) Throat tightening, coughing, itchy eyes Precautions Isolation Standard precaution 09/27/24 17:14 Active Medications Generic Name Dose Route Start Last Admin Trade Name Freq PRN Reason Stop Dose Admin Magnesium Sulfate 2 gm in 50 mls @ 25 mls/hr 09/27/24 21:13 09/27/24 21:54 IV_INF 09/27/24 23:12 25 mls/hr NOW ONE Administration Iohexol 100 ml 09/27/24 18:00 09/27/24 18:00 Omnipaque 350 Mg/Ml 100 Ml Btl IJ 10/27/24 23:59 100 ml DIRECTED ROMA Administration Sodium Chloride 50 ml 09/27/24 18:00 09/27/24 17:59 Normal Saline - Diluent 50 Ml Vial IJ 50 ml .FOR DI USE ROMA Administration IV IV Catheter Type [Right Peripheral IV Forearm] IV Catheter Gauge [Right 18 Forearm] Diagnostics 09/27/24 09/27/24 Range/Units 18:27 17:34 WBC 18.57 H (4.4-10.8) 10^3/uL RBC 5.78 H (3.93-5.22) 10^6/uL Hgb 16.0 H (11.2-15.7) g/dL Hct 46.6 H (36.0-46.0) % MCV 81 (80-95) fL MCH 27.7 (27.0-33.0) pg MCHC 34.3 (32.0-36.0) % RDW 13.4 (11.7-14.6) % Plt Count 524 H (130-400) 10^3/uL MPV 9.2 (8.0-11.0) fL Immature Gran % 0.6 % Neutrophils % 79.8 % Lymphocytes % 15.5 % Monocytes % 3.6 % Eosinophils % 0.1 % Basophils % 0.4 % Nucleated RBC % 0.0 (0.0-0.3) % Absolute Neutrophils 14.82 H (1.2-6.7) 10^3/uL Absolute Lymphocytes 2.88 (1.2-3.4) 10^3/uL Absolute Monocytes 0.67 (0.1-0.8) 10^3/uL Absolute Eosinophils 0.02 (0.0-0.7) 10^3/uL Absolute Basophils 0.07 (0.0-0.2) 10^3/uL Sodium 135 L (136-145) mmol/L Potassium 3.3 L (3.5-5.1) mmol/L Chloride 98 (98-107) mmol/L Carbon Dioxide 13.6 L (21.0-32.0) mmol/L Anion Gap 23.4 H (3-11) mmol/L BUN 19 H (7-18) mg/dL Creatinine 1.9 H (0.55-1.02) mg/dL Est GFR (CKD-EPI 2020) 34.66 (mL/min/1.73m2) Glucose 133 H (74-106) mg/dL Calcium 13.4 H* (8.5-10.1) mg/dL Ionized Calcium Pending Magnesium 1.0 L (1.8-2.4) mg/dL Total Bilirubin 0.6 (0.2-1.0) mg/dL AST 19 (15-37) U/L ALT 42 (14-59) U/L Alkaline Phosphatase 134 H (46-116) U/L Total Protein 9.1 H (6.4-8.2) g/dL Albumin 4.9 (3.4-5.0) g/dL Intake and Output - 24 Hour Total 09/27/24 16:52 thru 09/27/24 21:49 Intake Total 2059 Balance 2059 Weight 113.398 kg Intake: IV 2059 Falls Risk Assessment History of Falls No History 09/27/24 17:28 Contributing Factors No Factors 09/27/24 17:28 Ambulatory Aids Independent 09/27/24 17:28 Tubes/Lines None 09/27/24 17:28 Gait Evaluation No gait disturbance 09/27/24 17:28 Cognition No cognitive impairment 09/27/24 17:28 Fall Total Score 0 09/27/24 17:28 Level of Risk Standard/Low Risk 09/27/24 17:28 Problems (Last Reviewed 07/08/24 @ 15:00 by Alexx Melton MD) DVT prophylaxis (Acute) Hypomagnesemia (Acute) Hypercalcemia (Acute) Dehydration with hyponatremia (Acute) Abdominal pain (Acute) v v v v v v v v v Sending and/or Receiving Nurses: Please use comment section below to note any information pertinent to the patient hand-off not included above. Information / Comments: Pt here for severe abdominal pain. Pt has been very vocal about pain in the ER. No clear etiology on imaging however labs are irregular. Pt rec'd 4mg mag and 20meq of potassium in ED. Report received from: Erica JOHNSON
[2024-09-27 22:58] LABS: Bilirubin Negative (Negative); Blood Negative (Negative); Clarity Clear (Clear); Glucose Negative (Negative); Ketones Negative (Negative); Leukocyte Esterase Negative (Negative); Nitrite Negative (Negative); Specific Gravity 1.015 (1.005-1.025); Urobilinogen 0.2 mg/dL (Up to 0.2)
[2024-09-27 23:48] LABS: *AMPHETAMINES SCREEN URINE Negative (Negative); *BARBITURATES SCREEN URINE Negative (Negative); *BENZODIAZEPINES SCREEN URINE Negative (Negative); Cannabinoids THC Positive (Negative); Cocaine Screen,Urine Negative (Negative); METHADONE URINE SCREEN Negative (Negative); OPIATES URINE SCREEN Positive (Negative); Tricyclic Antidepressants Positive (Negative)
[2024-09-28] MEDS: Lactated Ringers 1,000 ML 150 ML IV ×2 (00:16→07:02)
[2024-09-28] MEDS: Normal Saline Flush 10 ML SYR IVP ×4 (00:16→08:28)
[2024-09-28] MEDS: Prochlorperazine 10 MG TAB PO ×2 (00:27→08:25)
[2024-09-28] MEDS: HYDROmorphone 2 MG/ML SYR 1 MG IVP ×4 (00:41→11:22)
[2024-09-28] MEDS: Metoclopramide 10 MG/2 ML VIAL IVP (06:24)
[2024-09-28 07:25] VITALS: BP 131/81; PULSE 95; RESP 18; TEMP 36.5; O2SAT 99
[2024-09-28 07:49] LABS: Abs Immature Grans 0.07 10^3/uL (0.0-0.06); Absolute Basophil Count 0.04 10^3/uL (0.0-0.2); Absolute Eosinophil Count 0.04 10^3/uL (0.0-0.7); Absolute Lymphocyte Count 5.66 10^3/uL (1.2-3.4); Absolute Monocyte Count 0.67 10^3/uL (0.1-0.8); Basophils % 0.3 %; Eosinophils % 0.3 %; HCT 38.4 % (36.0-46.0); HGB 12.7 g/dL (11.2-15.7); Immature Grans % 0.5 %; Lymphocytes % 43.8 %; MCH 27.9 pg (27.0-33.0); MCHC 33.1 % (32.0-36.0); MCV 84 fL (80-95); MPV 9.4 fL (8.0-11.0); Monocytes % 5.2 %; Neutrophils % 49.9 %; Platelet Count 355 10^3/uL (130-400); RBC 4.55 10^6/uL (3.93-5.22); RDW 14.4 % (11.7-14.6); RDW-SD 44.1 fL; WBC 12.92 10^3/uL (4.4-10.8)
[2024-09-28 08:04] LABS: Absolute Neutrophil Count 6.45 10^3/uL (1.2-6.7)
[2024-09-28 08:10] LABS: ALT 30 U/L (14-59); AST 19 U/L (15-37); Albumin 3.7 g/dL (3.4-5.0); Alkaline Phosphatase 98 U/L (46-116); Anion Gap 13.1 mmol/L (3-11); BUN 16 mg/dL (7-18); Bilirubin, Total 0.4 mg/dL (0.2-1.0); CO2 21.9 mmol/L (21.0-32.0); CREATININE 1.5 mg/dL (0.55-1.02); Calcium 9.9 mg/dL (8.5-10.1); Chloride 104 mmol/L (98-107); Estimated GFR 46.03 (mL/min/1.73m2); Glucose 102 mg/dL (74-106); Magnesium 2.2 mg/dL (1.8-2.4); Potassium 3.3 mmol/L (3.5-5.1); Sodium 139 mmol/L (136-145)
[2024-09-28 08:20] LABS: Diff Comment Diff Reviewed; RBC Morphology Normal
[2024-09-28] MEDS: Gabapentin 300 MG CAP PO (08:25)
[2024-09-28] MEDS: Topiramate 50 MG TAB PO (08:25)
[2024-09-28] MEDS: Gabapentin 600 MG TAB PO (08:25)
[2024-09-28] MEDS: Pantoprazole 40 MG VIAL IVP (08:26)
[2024-09-28] MEDS: Enoxaparin 40 MG/0.4 ML SYR SC (08:26)
--- NOTE | 2024-09-28 11:17 | W.PM.DS.N ---
Date of service: 09/28/24 Time of Service: 11:17 DS: Diagnosis Discharge Diagnosis (1) Abdominal pain: Status: Acute (2) Chronic, continuous use of opioids: (3) Dehydration with hyponatremia: Status: Acute (4) Hypercalcemia: Status: Acute (5) Hypomagnesemia: Status: Acute (6) Morbid obesity with BMI of 50.0-59.9, adult: (7) DVT prophylaxis: Status: Acute Discharge Plan Disposition Patient Disposition: Home Condition: Good Discharge Details Reason For Visit: ABDOMINAL PAIN,maria dolores,DEHYDRATION,VOMITING Admit Date/Time: 09/27/24 20:59 Admit Provider: Kervin Viramontes Attending Provider: Kervin Viramontes Primary Care Provider: Venessa Allen [facility] Course Hospital Course: Kervin patient initially presented with signs and symptoms consistent with an intractable nausea and vomiting. It was discovered that patient has recently stopped taking her PPI and was attempting to compensate by taking significant amount of Tums and drinking milk which also led to hypercalcemia. This resolved with IV fluids and monitoring overnight. Additionally patient's nausea and vomiting also significantly improved and felt that she was well enough to go home. Discussion was had with the patient about not taking her Zofran as she was found to have prolonged QT. Otherwise it was determined the patient was stable for discharge home. Home Meds and New Rx's Prescriptions: Continued Mirena 21 mcg/24hr (up to 8 yrs) 52 mg intrauterine device 1 device intrauterine ONCE Rx Instructions: as a single dose gabapentin 300 mg capsule 300 mg PO BID Advil PM 200-38 mg tablet 2 cap PO QHS gabapentin 600 mg tablet 600 mg PO DAILY ondansetron 4 mg tablet,disintegrating 4 mg PO Q12H PRN Nucynta 100 mg tablet 100 mg PO QID PRN Nucynta ER 50 mg tablet extended release 12 hr 100 mg PO Q12H topiramate [Topamax] 50 mg tablet 50 mg PO TID prochlorperazine maleate [Compazine] 10 mg tablet 10 mg PO Q6H PRN spironolactone 50 mg tablet 50 mg PO QHS albuterol 90 mcg/actuation aerosol 90 mcg inhalation Q4H PRN Cosentyx UnoReady Pen 300 mg/2 mL (150 mg/mL) pen injector 300 mg subcut Q2W amitriptyline 100 mg tablet 100 mg PO HS omeprazole 20 mg capsule,delayed release(DR/EC) 20 mg PO DAILY clonazepam 1 mg tablet,disintegrating 1 mg translingual BID PRN Discharge Instructions Activity:: Activity as Tolerated Equipment/Supplies:: No Equipment Needed Diet:: As Tolerated Discharge Orders Discharge Orders: Discharge Order (Routine); Ordered 09/28/24 Ordered By: Richard Chavez DS: Summary Time Spent with Patient providing and/or coordinating discharge services: Greater than 30 minutes Status at Discharge Functional status at discharge: independent ambulation Overall status at discharge: patient is back to baseline Mental Status: mental status grossly normal Speech and Movement: speech and movement normal Mood: congruent mood Affect: normal affect Quality:SDOH Health Related Social Needs: Health related social needs inadequate housing (Z59.1), food insecurity (Z59.41), transportation insecurity (Z59.82), problems related to housing/economic circumstances (Z59.89), feeling lonely/isolated (Z60.8) Health related social needs details pt feels she has everything she needs at this time Health related social needs details: pt feels she has everything she needs at this time Exam Narrative Exam Narrative: Well-appearing female laying in bed in no acute distress, ANO x 4, heart regular rhythm, lungs good auscultation bilaterally, abdomen soft, nontender, nondistended Psych Mental Status: mental status grossly normal Speech and Movement: speech and movement normal Mood: congruent mood Affect: normal affect DS: Data Vitals/I&O Vitals and I&O: Vital Signs Temperature 97.7 F 09/28/24 07:25 Temperature Source Temporal Artery Scan 09/28/24 07:25 Pulse 95 H 09/28/24 07:25 Pulse Rhythm Regular 09/27/24 22:11 Pulse 126 H 09/27/24 21:47 Respiratory Rate 18 09/28/24 07:25 Respiratory Effort Normal 09/27/24 22:11 Respiratory Depth Normal 09/27/24 22:11 Respiratory Pattern Tachypnea 09/27/24 22:11 Blood Pressure 131/81 09/28/24 07:25 Blood Pressure Mean 82 09/27/24 21:47 Pulse Oximetry 99 09/28/24 07:25 Oxygen Delivery Method Room Air 09/28/24 07:25 Oxygen Flow Rate 0 09/28/24 07:25 Pain Level 6 09/28/24 09:26 Comment RN Notified 09/27/24 22:09 Intake & Output 09/27/24 09/28/24 09/28/24 17:59 05:59 17:59 Intake Total 2049 1360 / 1360 Output Total 400 / 400 400 / 400 Balance 1650 / 1660 960 / 960 Weight 250 lb 255 lb 11.779 oz Intake: IV 2049 1000 / 1000 Oral 360 / 360 Output: Urine 400 / 400 400 / 400 Other: Urine Color Yellow Yellow Urine Appearance Clear Clear Urine Odor Strong None Comment x1 per pt report Data Completed and Pending Labs on day of discharge: Labs from last 24 hours 09/28/24 09/27/24 09/27/24 07:15 22:10 18:27 WBC 12.92 H RBC 4.55 Hgb 12.7 D Hct 38.4 MCV 84 MCH 27.9 MCHC 33.1 RDW 14.4 Plt Count 355 MPV 9.4 Immature Gran % 0.5 Neutrophils % 49.9 Lymphocytes % 43.8 Monocytes % 5.2 Eosinophils % 0.3 Basophils % 0.3 Nucleated RBC % 0.0 Absolute Neutrophils 6.45 Absolute Lymphocytes 5.66 H Absolute Monocytes 0.67 Absolute Eosinophils 0.04 Absolute Basophils 0.04 RBC Morphology Normal Sodium 139 Potassium 3.3 L Chloride 104 Carbon Dioxide 21.9 Anion Gap 13.1 H BUN 16 Creatinine 1.5 H Est GFR (CKD-EPI 2020) 46.03 Glucose 102 Calcium 9.9 Ionized Calcium Pending Magnesium 2.2 Total Bilirubin 0.4 AST 19 ALT 30 Alkaline Phosphatase 98 Total Protein 7.0 Albumin 3.7 Urine Color Yellow Urine Clarity Clear Urine pH 7.0 Ur Specific [place] 1.015 Urine Protein Negative Urine Ketones Negative Urine Blood Negative Urine Nitrite Negative Urine Bilirubin Negative Urine Urobilinogen 0.2 Ur Leukocyte Esterase Negative Urine Glucose Negative Urine Opiates Screen Positive A Urine Methadone Screen Negative Ur Barbiturates Screen Negative Ur Tricyclics Screen Positive A Ur Amphetamines Screen Negative U Benzodiazepines Scrn Negative Urine Cocaine Screen Negative Ur THC Screen Positive A 09/27/24 17:34 WBC 18.57 H RBC 5.78 H Hgb 16.0 H Hct 46.6 H MCV 81 MCH 27.7 MCHC 34.3 RDW 13.4 Plt Count 524 H MPV 9.2 Immature Gran % 0.6 Neutrophils % 79.8 Lymphocytes % 15.5 Monocytes % 3.6 Eosinophils % 0.1 Basophils % 0.4 Nucleated RBC % 0.0 Absolute Neutrophils 14.82 H Absolute Lymphocytes 2.88 Absolute Monocytes 0.67 Absolute Eosinophils 0.02 Absolute Basophils 0.07 RBC Morphology Sodium 135 L Potassium 3.3 L Chloride 98 Carbon Dioxide 13.6 L Anion Gap 23.4 H BUN 19 H Creatinine 1.9 H Est GFR (CKD-EPI 2020) 34.66 Glucose 133 H Calcium 13.4 H* Ionized Calcium Magnesium 1.0 L Total Bilirubin 0.6 AST 19 ALT 42 Alkaline Phosphatase 134 H Total Protein 9.1 H Albumin 4.9 Urine Color Urine Clarity Urine pH Ur Specific [place] Urine Protein Urine Ketones Urine Blood Urine Nitrite Urine Bilirubin Urine Urobilinogen Ur Leukocyte Esterase Urine Glucose Urine Opiates Screen Urine Methadone Screen Ur Barbiturates Screen Ur Tricyclics Screen Ur Amphetamines Screen U Benzodiazepines Scrn Urine Cocaine Screen Ur THC Screen PFSH All Active Problems (Updated 09/28/24 @ 11:17 by Richard Chavez MD) Acute kidney injury (Acute) Acute hypokalemia (Acute) DVT prophylaxis (Acute) Hypomagnesemia (Acute) Hypercalcemia (Acute) Dehydration with hyponatremia (Acute) Abdominal pain (Acute) Hiatal hernia (Chronic) Medical History Cyclical vomiting Morbid obesity with BMI of 50.0-59.9, adult [id number] Adjustment disorder with depressed mood Chronic, continuous use of opioids Irritant contact dermatitis Chronic post-traumatic stress disorder Sliding hiatal hernia Hidradenitis Surgical History S/P cholecystectomy S/P appendectomy S/P panniculectomy Social History (Updated 09/27/24 @ 23:52 by Kervin Viramontes) Smoking/Tobacco Use Status: Never Smoking risk assessment performed?: Yes Alcohol Intake: current Alcohol Intake frequency: holidays/special occasions only Drug use: Daily Substance use type: marijuana Housing: apartment Do you feel safe at home: Yes Do you feel safe in your relationship?: Yes Additional Social history: On SSDI, has had severe medical issues since teen. 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 Mom [place], visit a lot Time Spent with Patient Time Spent with Patient: <45 minutes Time was spent: preparing to see the patient(eg.review tests), obtaining and/or reviewing separately otained hiistory, ordering medications,tests, procedures, referring, communicating with other health patient care specialist, indepentently interpreting results, counseling the patient and care coordination
--- NOTE | 2024-09-28 11:50 | NUR.NOTE ---
patient's PIV removed, 11/11 pain at discharge consistent with her chronic pain, d/c instructions given to pt including using zofran as last resort due to prolonged QTc risks, no new medications, f/u appointment with PCP tomorrow 09/29, patient denies concerns or questions at discharge, all belongings with pt, home meds returned to [facility] Note:
[2024-09-28 16:02] LABS: Ionized Calcium 1.44 mmol/L (1.14-1.35)
== END 2024-09-28 11:44 | disposition home or self-care (01) ==
LOC: ER 21:46 → MS 22:05
PROVIDERS: Admitting Provider Family Medicine; Emergency Provider Student in an Organized Health Care Education/Training Program; PCP Physician Assistant; Responsible Provider Family Medicine; Visit Provider Family Medicine
DX: N17.9 Acute kidney failure, unspecified (principal); R10.9 Unspecified abdominal pain; E87.1 Hypo-osmolality and hyponatremia; E86.0 Dehydration; E83.52 Hypercalcemia; E83.42 Hypomagnesemia; E66.01 Morbid (severe) obesity due to excess calories; Z68.43 Body mass index [BMI] 50.0-59.9, adult; Z79.891 Long term (current) use of opiate analgesic; G89.29 Other chronic pain; Z79.899 Other long term (current) drug therapy; K44.9 Diaphragmatic hernia without obstruction or gangrene; K21.9 Gastro-esophageal reflux disease without esophagitis; L73.2 Hidradenitis suppurativa; R11.2 Nausea with vomiting, unspecified; F43.12 Post-traumatic stress disorder, chronic; N83.02 Follicular cyst of left ovary; N83.01 Follicular cyst of right ovary; R94.31 Abnormal electrocardiogram [ECG] [EKG]; Z68.42 Body mass index [BMI] 45.0-49.9, adult
CPT/HCPCS: 00123; 36415; 80053; 80307; 96361; 96365; 96366; 96372; 96375; 96376; 99291; J1650; 71045; 74177; 81003; 82330; 83735; 85025; 99223; 99239; G0378; J1171; J2270; J2405; J2470; J2765; J3475; J3480; J3490